=== PATIENT | male | born 1995 | race Hispanic/Latino ===

== ENCOUNTER 2018-01-24 09:58 | Emergency (ER) | payer OTHER ==
[2018-01-24] MEDS ORDERED: XYLOCAINE 2% INFILTRATI ONE (10:23)
[2018-01-24] MEDS ORDERED: NACL 0.9% 500 ML IR ONE (10:59)
[2018-01-24 11:11] LABS: Basophils % (Auto) 0.3 % (0.0-1.8); Eosinophils # (Auto) 0.2 K/mm3 (0.0-0.4); Hematocrit 44.5 % (35.5-45.6); Hemoglobin 15.5 gm/dl (11.8-15.2); Lymphocytes # (Auto) 1.5 K/mm3 (1.2-5.4); Lymphocytes % (Auto) 12.1 % (13.4-35.0); Mean Corpuscular HGB Conc 35 % (32-34); Mean Corpuscular Hemoglobin 28 pg (28-32); Mean Corpuscular Volume 79 fl (84-94); Monocytes # (Auto) 0.7 K/mm3 (0.0-0.8); Monocytes % (Auto) 5.8 % (0.0-7.3); Platelet Count 323 K/mm3 (140-440); Red Blood Count 5.61 M/mm3 (3.65-5.03); Red Cell Distribution Width 13.5 % (13.2-15.2)
[2018-01-24 11:31] LABS: Alanine Aminotransferase 17 units/L (7-56); Albumin 4.1 g/dL (3.9-5); BUN/Creatinine Ratio 20; Blood Urea Nitrogen 12 mg/dL (9-20); Hemolysis Index 12
[2018-01-24 11:37] LABS: Bilirubin,Direct < 0.2 mg/dL (0-0.2)
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
[2018-01-24] MEDS ORDERED: NACL 0.9% IR ONE (13:59)
[2018-01-24] MEDS ORDERED: XYLOCAINE 1% 20 mL INFILTRATI ONE (14:00)
[2018-01-24] MEDS: ceFAZolin 1 GM in NACL 0.9% 20 ML IV SCH ×2 (15:00→15:18)
[2018-01-24] MEDS: MOTRIN PO PRN (16:15)
[2018-01-24 19:37] LABS: Bilirubin,Urine NEG (Negative); Blood,Urine NEG (Negative); Color,Urine Yellow (Yellow); Mucus,Urine 3+ /HPF; Protein,Urine <15 mg/dL mg/dL (Negative); Urobilinogen,Urine < 2.0 mg/dL (<2.0)
[2018-01-24 19:44] LABS: Amphetamine Screen,Urine PRESUMPTIVE NEGATIVE; Benzodiazepines Screen,Urine PRESUMPTIVE NEGATIVE; Cannabinoid Screen,Urine PRESUMPTIVE NEGATIVE; Cocaine Screen,Urine PRESUMPTIVE NEGATIVE; Methadone Screen,Urine PRESUMPTIVE NEGATIVE; Opiate Screen,Urine PRESUMPTIVE NEGATIVE
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
[2018-01-25] MEDS: ZOLOFT PO SCH (16:30)
[2018-01-25] MEDS: MOTRIN PO PRN (22:31)
[2018-01-25] MEDS: MINIPRESS PO SCH (22:49)
[2018-01-26] MEDS: ZOLOFT PO SCH (10:30)
--- NOTE | 2018-01-26 13:16 | Progress Note ---
Subjective - Reason for Consult Consult date: 01/26/18 Reason for consult: Psychiatric Follow-up Evaluation - Chief Complaint Chief complaint: "Life can be hard" Mental Status Exam - Vital signs Last Vital Signs Temp 97.7 F 01/26/18 08:23 Pulse 76 01/26/18 08:23 Resp 16 01/26/18 08:23 BP 137/83 01/26/18 08:23 Pulse Ox 96 01/26/18 08:23
[2018-01-26] MEDS: MINIPRESS PO SCH (22:51)
[2018-01-27] MEDS: ZOLOFT PO SCH (10:10)
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
[2018-01-27] MEDS: MINIPRESS PO SCH (22:15)
[2018-01-28 09:46] VITALS: BP 145/63
[2018-01-28] MEDS: ZOLOFT PO SCH (10:42)
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
--- NOTE | 2018-01-28 13:59 | Emergency Department Report ---
Blank Doc - Documentation Documentation: Patient re-evaluated by myself. Patient is negative for SI, HI, AVH. Exam: nml affect, good insight, nml behavior and mood ED course: Patient monitored in the ED and evaluated by psych for >72 hours. Patient been without SI/HI for >3 days. Patient stable outpatient d/c and psych follow up.
== END 2018-01-28 14:31 ==
LOC: ED 09:58 → EEVIPCON 09:58 → ED 01-28 14:31
DX: S51.812A Laceration without foreign body of left forearm, initial encounter (principal); R45.4 Irritability and anger; I10 Essential (primary) hypertension; E11.9 Type 2 diabetes mellitus without complications; F90.9 Attention-deficit hyperactivity disorder, unspecified type; F17.200 Nicotine dependence, unspecified, uncomplicated; Z79.899 Other long term (current) drug therapy; Y08.89XA Assault by other specified means, initial encounter; Y93.89 Activity, other specified; Y92.89 Other specified places as the place of occurrence of the external cause; Y99.8 Other external cause status
CPT/HCPCS: 12002; 12044; 36415; 80048; 80074; 80307; 81001; 83735; 85025; 96365; 99285; G0480; J0690; 80320

== ENCOUNTER 2018-02-14 01:04 | Emergency (ER) | payer OTHER ==
[2018-02-14 02:39] LABS: Basophils # (Auto) 0.1 K/mm3 (0.0-0.1); Basophils % (Auto) 0.6 % (0.0-1.8); Eosinophils # (Auto) 0.4 K/mm3 (0.0-0.4); Hematocrit 44.6 % (35.5-45.6); Hemoglobin 15.2 gm/dl (11.8-15.2); Lymphocytes % (Auto) 32.3 % (13.4-35.0); Mean Corpuscular HGB Conc 34 % (32-34); Mean Corpuscular Hemoglobin 28 pg (28-32); Mean Corpuscular Volume 81 fl (84-94); Monocytes # (Auto) 1.1 K/mm3 (0.0-0.8); Monocytes % (Auto) 8.5 % (0.0-7.3); Platelet Count 356 K/mm3 (140-440); Red Blood Count 5.47 M/mm3 (3.65-5.03); Red Cell Distribution Width 13.7 % (13.2-15.2)
[2018-02-14 02:48] LABS: BUN/Creatinine Ratio 20; Blood Urea Nitrogen 14 mg/dL (9-20); Calcium 9.1 mg/dL (8.4-10.2); Hemolysis Index 3
[2018-02-14 04:52] VITALS: BP 123/75
== END 2018-02-14 06:13 | disposition left against medical advice (07) ==
LOC: ED 01:04
DX: Z48.02 Encounter for removal of sutures (principal); Z53.21 Procedure and treatment not carried out due to patient leaving prior to being seen by health care provider
CPT/HCPCS: 36415; 80048; 85025